=== PATIENT | female | born 1990 | race African-American/Black ===

== ENCOUNTER 2020-10-09 01:29 | Emergency (ER) | payer MEDICAID ==
[~2020-10-09] VITALS: Ht 167.6 cm; Wt 73.0 kg
[~2020-10-09 01:29] MED LIST: ALBU05; FERR-63 PO; IBUP-2029 PO; MULT-1146 PO
[2020-10-09] MEDS ORDERED: SODIUM CHLORIDE 0.9% 1,000 ML IV ONE (02:00)
[2020-10-09 03:28] LABS: BASOPHILS % 0.7 % (0.0-2.0); CHLORIDE 107 mEq/L (98-107); EOSINOPHILS % 1.3 % (0.0-5.0); HEMATOCRIT. 35.3 % (36.0-48.0); HEMOGLOBIN. 11.9 g/dL (12.0-16.0); MEAN CORPUSCULAR VOLUME 86.5 fL (81.0-99.0); MEAN PLATELET VOLUME 7.5 fl (7.4-10.4); MONOCYTES % 10.3 % (2.0-8.0); NEUTROPHILS % 51.7 % (40.0-76.0); PLATELET 335 x1000/uL (130-400); RED BLOOD CELL COUNT 4.08 mill/uL (4.2-5.4); RED CELL DISTRIBUTION WIDTH 13.4 % (11.6-14.6)
[2020-10-09 03:32] LABS: ETHANOL BLOOD < 10 mg/dL
[2020-10-09 03:38] LABS: CLARITY URINE CLOUDY (CLEAR); COLOR URINE YELLOW (YELLOW); KETONES URINE NEGATIVE (NEGATIVE); LEUKOCYTE ESTERASE URINE 3+ (NEGATIVE); NITRITE URINE POSITIVE (NEGATIVE); OCCULT BLOOD URINE NEGATIVE (NEGATIVE); PROTEIN URINE TRACE (NEGATIVE); SPECIFIC GRAVITY URINE 1.019 (1.005-1.030)
[2020-10-09 03:46] LABS: HCG SCREEN NEGATIVE
[2020-10-09 03:48] LABS: PROTHROMBIN TIME 11.2 sec (9.6-11.0)
[2020-10-09 04:06] LABS: *BARBITURATES SCREEN URINE NEGATIVE (NEGATIVE)
[2020-10-09 04:07] LABS: *BENZODIAZEPINES SCREEN URINE NEGATIVE (NEGATIVE); *COCAINE SCREEN URINE NEGATIVE (NEGATIVE); METHADONE URINE SCREEN NEGATIVE (NEGATIVE); OPIATES URINE SCREEN NEGATIVE (NEGATIVE); PHENCYCLIDINE URINE SCREEN NEGATIVE (NEGATIVE)
[2020-10-09 04:12] LABS: *AMPHETAMINES SCREEN URINE PRESUMTIVE POSITIVE (NEGATIVE); CANNABINOID URINE SCREEN PRESUMTIVE POSITIVE (NEGATIVE)
[2020-10-09] MEDS ORDERED: SULFAMETHOXAZOLE/TRIMETHOPRIM 400/80MG TAB PO SCH (05:00)
[2020-10-09] MEDS ORDERED: ONDANSETRON HCL 4MG/2ML INJ IV ONE (05:00)
[2020-10-09] MEDS ORDERED: ONDANSETRON HCL 4MG/2ML INJ IV SCH (05:15)
[2020-10-09] MEDS ORDERED: SULF1TAB48 MT (05:58)
[2020-10-09] MEDS ORDERED: ONDA4TAB5 MT (05:58)
[2020-10-09 06:10] VITALS: BP 101/71
[2020-10-16] MEDS ORDERED: DOCU-150 PO (16:35)
== END 2020-10-09 06:15 | disposition home or self-care (01) ==
LOC: ER 01:29
DX: N39.0 Urinary tract infection, site not specified (principal); R11.2 Nausea with vomiting, unspecified; F12.10 Cannabis abuse, uncomplicated; F15.10 Other stimulant abuse, uncomplicated; J45.909 Unspecified asthma, uncomplicated; E11.9 Type 2 diabetes mellitus without complications; Z79.899 Other long term (current) drug therapy
CPT/HCPCS: 36415; 80053; 80305; 80320; 81003; 81025; 83690; 84703; 85025; 85610; 87077; 87086; 87186; 93005; 96360; 99285; J7030; G0480

== ENCOUNTER 2020-12-10 14:54 | Emergency (ER) | payer MEDICAID, OTHER ==
[~2020-12-10] VITALS: Ht 167.6 cm; Wt 72.0 kg
[~2020-12-10 14:54] MED LIST changes: +DOCU-138 MT; +DOCU-150 PO; +ONDA4TAB5 MT
[2020-12-10 17:08] VITALS: BP 132/79
[2020-12-10 17:52] LABS: CLARITY URINE CLEAR (CLEAR); COLOR URINE DARK YELLOW (YELLOW); KETONES URINE NEGATIVE (NEGATIVE); LEUKOCYTE ESTERASE URINE NEGATIVE (NEGATIVE); NITRITE URINE NEGATIVE (NEGATIVE); OCCULT BLOOD URINE NEGATIVE (NEGATIVE); PH URINE 6.5 (4.5-8.0); PROTEIN URINE NEGATIVE (NEGATIVE)
[2020-12-10] MEDS ORDERED: ACETAMINOPHEN 325MG TABLET PO ONE (19:45)
[2020-12-10 20:53] LABS: HEMATOCRIT. 40.8 % (36.0-48.0); HEMOGLOBIN. 13.1 g/dL (12.0-16.0); MEAN CORPUSCULAR HEMOGLOBIN 28.6 pg (28.0-32.0); MEAN PLATELET VOLUME 7.3 fl (7.4-10.4); PLATELET 280 x1000/uL (130-400); RED BLOOD CELL COUNT 4.59 mill/uL (4.2-5.4); RED CELL DISTRIBUTION WIDTH 14.4 % (11.6-14.6)
[2020-12-10 21:02] LABS: CHLORIDE 105 mEq/L (98-107)
[2020-12-10 21:12] LABS: B-HCG QUANTITATIVE < 1 mIU/mL (<3)
[2020-12-10] MEDS ORDERED: ONDA4TAB5 MT (21:49)
[2020-12-10 22:14] LABS: PLATELET ESTIMATE NORMAL
== END 2020-12-10 22:05 | disposition home or self-care (01) ==
LOC: ER 14:54
DX: R11.2 Nausea with vomiting, unspecified (principal); J45.909 Unspecified asthma, uncomplicated; E11.9 Type 2 diabetes mellitus without complications; Z87.440 Personal history of urinary (tract) infections
CPT/HCPCS: 36415; 80048; 81003; 81025; 84702; 85025; 99283